=== PATIENT | male | born 1950 | race Hispanic/Latino ===

== ENCOUNTER → 2018-11-28 | Day surgery (SDC) | payer MEDICARE ==
[~2018-11-28] MED LIST: ADVAIR 250-501 EACH; ALBUTEROL SULFAT4 MG; AMLODIPINE BESYL5 MG PO; ATORVASTATIN CA20 MG PO; FENTANYL CITRATE/PF 100MCG/2 ML INJ ONE; FISH OIL 1,0001 EAC2; FLUTICASONE; IBU; LEVOTHYROXINE50 MCG PO; LOSARTAN POTASS25 MG; LUPRON DEPOT3.75 MG; MIDAZOLAM HCL 2 MG/2 ML VIAL ONE; NORCO 7.5-3251 EACH PO; OR PHACO EYE KIT ONE; PREDNISOLO15 MG/5 ML PO; PREDNISONE5 MG; PREOP PHACO EYE KIT ONE; PROAIR HFA INH8.5 GM; ULTRAM50 MG PO; XTANDI PO; ZYTIGA250 MG
--- OUTSIDE RECORDS SUMMARY | 2018-11-28 11:27 | XMS REPORT | Encounter Summary ---
Author Organization Unknown Address [address] [place] [address] Phone [phone] Care Team Providers Care Bus Analyst Name Role Phone Dr. Avelino Stanton 3 [phone] Wili Davis MD 114 [phone] Miguelangel Sheldon MD 129 [phone] Reason for Visit pre-op evaluation Instructions 1. Essential hypertension 2. Secondary malignant neoplasm of bone 3. Malignant tumor of prostate 4. Chronic obstructive lung disease 5. Cataract 6. Preoperative cardiovascular examination Discussion Note: None recorded. Patient educational handouts: No information available. Plan of Care Reminders Provider Appointments None recorded. Lab None recorded. Referral None recorded. Procedures None recorded. Surgeries None recorded. Imaging None recorded. Medications Name Start Date abiraterone 250 mg tablet Advair Diskus 250 mcg-50 mcg/dose powder for inhalation Inhale 1 puff 3 times a day by inhalation route. albuterol sulfate 2.5 mg/3 mL (0.083 %) solution for nebulization Inhale 1 mL 4 times a day by inhalation route for 30 days. amlodipine 5 mg tablet Take 1 tablet every day by oral route. atorvastatin 20 mg tablet TAKE 1 TABLET BY MOUTH EVERY DAY Fish Oil 1,000 mg (120 mg-180 mg) capsule Take 1 capsule every day by oral route. fluticasone 50 mcg/actuation nasal spray,suspension [place] 1 spray twice a day by intranasal route. hydrocodone 7.5 mg-acetaminophen 325 mg tablet levothyroxine 50 mcg tablet Take 1 tablet every day by oral route. losartan 25 mg tablet Take 1 tablet every day by oral route. Lupron one shot every 16 weeks prednisolone acetate 1 % eye drops,suspension prednisone 10 mg tablet Take 1 tablet every day by oral route for 90 days. prednisone 5 mg tablet ProAir HFA 90 mcg/actuation aerosol inhaler Inhale 2 puffs every 4 hours by inhalation route as needed for 30 days. tramadol 50 mg tablet Medications Administered None recorded. Vitals Height Weight BMI Blood Pressure 5 ft 7 in 175 lbs 27.4 kg/m2 122/72 mm[Hg] Lab Results None recorded. Allergies Code Code System Name Reaction Severity Status Onset 45978 RxNorm Lisinopril Active Problems Name Status Onset Date Source Malignant Tumor of Prostate Active 06/01/2017 Secondary Malignant Neoplasm of Bone Active 06/01/2017 Mixed Hyperlipidemia Active 06/01/2017 Asthma Active 06/01/2017 Lipoma of Skin and Subcutaneous Tissue (Excluding Face) Active 07/27/2017 Mixed Anxiety and Depressive Disorder Active 07/27/2017 Obstructive Sleep Apnea Syndrome Active 07/27/2017 Benign Intracranial Hypertension Active 07/27/2017 Peripheral Vascular Disease Active 07/27/2017 Varicose Veins of Lower Extremity Active 07/27/2017 Allergic Rhinitis Active 07/27/2017 Multiple Joint Pain Active 07/27/2017 Impaired Glucose Tolerance Active 07/27/2017 Bronchiectasis Active 08/11/2017 Essential Hypertension Active 06/07/2018 Seasonal Allergy Active 06/07/2018 Chronic Obstructive Lung Disease Active 06/07/2018 Anemia Active 06/08/2018 Thyroid Function Tests Abnormal Active 06/08/2018 Iron Deficiency Anemia Active 06/14/2018 Procedures Date Name Performed by 08/08/2012 Head Surgery Procedure Information not available 11/25/1987 Cholecystectomy (Gall Bladder Removal) Information not available Prostate Surgery Information not available Knee Surgery Information not available Vaccine List Vaccine Type influenza, injectable, quadrivalent 07/21/2017 pneumococcal conjugate PCV 13 07/27/20170.5 mL pneumococcal polysaccharide PPV23 07/12/2011 08/14/20180.5 mL zoster 0.65 mL Social History Smoking Status Former Smoker (1 PPW) Past Encounters 11/03/2018 Essential Hypertension; Secondary Malignant Neoplasm of Bone; Malignant Tumor of Prostate; Chronic Obstructive Lung Disease; Cataract; Preoperative Cardiovascular Examination Avelino Stanton Jr, MD: [id number], [address], [place] [address], Ph. History of Present Illness Note:Patient presents for lab pre-operative evaluation. Currently without new complaint. Review of Systems Comprehensive General Adult ROS Reported By: Patient Constitutional: Constitutional: no significant weight gain, no significant weight loss Cardiovascular: Cardiovascular: no chest pain, no shortness of breath when walking Respiratory: Respiratory: no cough, no wheezing, no shortness of breath Endocrine: Endocrine: no fatigue Physical Exam Cardiology Exam Reported By: Patient Constitutional: General Appearance: well-nourished, well-developed, appears stated age. Level of Distress: comfortable Psychiatric: Mental Status: alert, normal affect. Orientation: oriented to time, place, and person. Insight: good judgment Lungs: Respiratory Effort: unlabored. Chest Exam: normal curvature, no thoracic deformity, no chest wall tenderness. Auscultation: clear, no wheezing, no rales, no rhonchi Cardiovascular: Rate And Rhythm: regular. Heart Sounds: normal S1, physiologically split S2, no rub, no gallop, no click. Systolic Murmur: not heard. Diastolic Murmur: not heard. Extremities: no cyanosis, no edema, no peripheral signs of emboli Peripheral Pulses: Pulses: full and equal in all extremities except if noted. Radial Pulse: normal Skin: Inspection and Palpation: warm and dry. Nails: no clubbing
--- OUTSIDE RECORDS SUMMARY | 2018-11-28 11:27 | XMS REPORT | Encounter Summary ---
Author Organization Unknown Address [address] [place] [address] Phone [phone] Care Team Providers Care Paper Twister Tender Name Role Phone Dr. Avelino Stanton 3 [phone] Wili Davis MD 114 [phone] Miguealngel Sheldon MD 129 [phone] Reason for Visit Left knee pain/problem Instructions 1. Essential hypertension CBC w/ auto diff electrocardiogram 2. Pain in left knee orthopedic referral 3. Osteoarthritis of knee 4. Knee joint effusion MRI, knee, w/o contrast 5. Peripheral vascular disease associated with another disorder 6. Pre-surgery evaluation 7. Administrative reason for encounter Discussion Note: None recorded. Patient educational handouts: No information available. Plan of Care Reminders Provider Appointments Return to Office on or around 02/06/2019 Avelino Stanton Jr, MD Lab CBC W/ Auto Diff 11/10/2018 [facility] Laboratory Referral Orthopedic Referral 11/10/2018 Procedures None recorded. Surgeries None recorded. Imaging Electrocardiogram 11/10/2018 [facility] MRI, Knee, W/o Contrast 11/10/2018 [facility] Medications Name Start Date abiraterone 250 mg [...] oral route. fluticasone 50 mcg/actuation nasal spray,suspension [place] 1 spray twice a day by intranasal route. hydrocodone 7.5 mg-acetaminophen 325 mg tablet IBU 800 mg tablet levothyroxine 50 mcg tablet Take [...] BMI Blood Pressure 5 ft 7 in 173 lbs 27.1 kg/m2 136/78 mm[Hg] Lab Results None recorded. Allergies Code Code System Name Reaction Severity Status Onset 96601 RxNorm Lisinopril Active Problems Name Status Onset [...] not available Knee Surgery Information not available 11/10/2018 Electrocardiogram [facility] ([facility] [id number] [place] [address] ([address]) 11/10/2018 MRI, Knee, W/o Contrast [facility] ([facility] [id number] [place] [address] (Work Place) Vaccine List Vaccine Type influenza, injectable, quadrivalent 07/21/2017 pneumococcal conjugate PCV 13 07/27/20170.5 mL pneumococcal polysaccharide PPV23 07/12/2011 08/14/20180.5 mL zoster 0.65 mL Social History Smoking Status Former Smoker (1 PPW) Past Encounters 11/10/2018 Essential Hypertension; Pain in Left Knee; Osteoarthritis of Knee; Knee Joint Effusion; Peripheral Vascular Disease Associated with Another Disorder; Pre- surgery Evaluation; Administrative Reason for Encounter Avelino Stanton Jr, MD: [id number], [address], [place] [address], Ph. 11/03/2018 Essential Hypertension; Mixed Hyperlipidemia; Secondary Malignant Neoplasm of Bone; Malignant Tumor of Prostate; Aseptic Necrosis of Bone of Jaw; Chronic Obstructive Lung Disease; Cataract; Preoperative Cardiovascular Examination Avelino Stanton Jr, MD: [id number], [address], [place] [address], Ph. History of Present Illness Musculoskeletal Pain Reported By: Patient HPI: Location: pain is not radiating. Quality: dull. Severity: worsening. Duration: present <1 month. Timing: constant. Alleviating factors: rest. Aggravating factors: movement/positioning. Associated Symptoms: no fever, no weak limbs, no tingling, no numbness of the legs/feet Review of Systems Comprehensive Adult Problem ROS Reported By: Patient Constitutional: Constitutional: no significant weight change, good appetite Cardiovascular: Cardiovascular: no chest pain Musculoskeletal: Musculoskeletal: no soft tissue swelling, no joint swelling, myalgia Skin: Skin: no redness, no skin lesions, no swelling, no bruising Neurological symptoms: Neuro: no numbness, no weakness, no tingling Physical Exam Musculoskeletal and Joint Exam, Neurology Exam Reported By: Patient Musculoskeletal System: Musculoskeletal System normal range of motion in all peripheral joints. Left Knee: no warmth, no erythema, crepitus, reduced ROM, swelling, tenderness; large joint effusion Constitutional: Weight: well-nourished. Ambulation: ambulates independently Head: Size/Trauma: normocephalic Mental Status: Orientation oriented to person, oriented to place, oriented to time. Mood/Affect: appropriate mood, appropriate affect. Language: has spontaneous speech. Memory: recent memory intact, remote memory intact. Fund of Knowledge: current events, past history
--- OUTSIDE RECORDS SUMMARY | 2018-11-28 11:27 | XMS REPORT | Encounter Summary ---
Author Organization Unknown Address [address] [place] [address] Phone [phone] Care Team Providers Care Vp Foundation Name Role Phone Dr. Avelino Stanton 3 [phone] Wili Davis MD 114 [phone] Miguelangel Sheldon MD 129 [phone] Reason for Visit pre-op evaluation Instructions 1. Essential hypertension 2. Mixed hyperlipidemia atorvastatin 20 mg tablet 3. Secondary malignant neoplasm of bone 4. Malignant tumor of prostate 5. Aseptic necrosis of bone of jaw 6. Chronic obstructive lung disease 7. Cataract 8. Preoperative cardiovascular examination Discussion Note: None recorded. [...] oral route. fluticasone 50 mcg/actuation nasal spray,suspension [place] 1 spray twice a day by intranasal [...] Code System Name Reaction Severity Status Onset 45747 RxNorm Lisinopril Active Problems Name Status Onset [...] (1 PPW) Past Encounters 11/03/2018 Essential Hypertension; Mixed Hyperlipidemia; Secondary Malignant Neoplasm of Bone; Malignant Tumor of Prostate; Aseptic Necrosis of Bone of Jaw; Chronic Obstructive Lung Disease; Cataract; Preoperative Cardiovascular Examination Avelino Stanton Jr, MD: [id number] [facility], [address], [place] [address], Ph. History of Present Illness Note:Patient presents [...]
[2018-11-28 14:10] VITALS: BP 144/76
== END | disposition home or self-care (01) ==
LOC: OR 11:24
PROVIDERS: ATTEND Ophthalmology
DX: H25.11 Age-related nuclear cataract, right eye (principal); C41.2 Malignant neoplasm of vertebral column; C79.9 Secondary malignant neoplasm of unspecified site; J45.909 Unspecified asthma, uncomplicated; I10 Essential (primary) hypertension; Z79.890 Hormone replacement therapy; Z79.899 Other long term (current) drug therapy; Z88.8 Allergy status to other drugs, medicaments and biological substances
CPT/HCPCS: 66984; J2250; V2632